=== PATIENT | female | born 1995 | race Caucasian/White ===

== ENCOUNTER 2022-03-09 09:27 | Emergency (ER) | payer MEDICAID, SELFPAY | END 2022-03-09 11:05 | disposition home or self-care (01) | LOC: ERS 09:27 | DX: S61.052A Open bite of left thumb without damage to nail, initial encounter (principal); W55.01XA Bitten by cat, initial encounter ==

== ENCOUNTER 2025-02-23 10:05 | Outpatient (CLI) | payer OTHER | END 2025-02-23 10:06 | disposition home or self-care (01) | LOC: SCSRAD 10:05 | PROVIDERS: ATTEND Physician Assistant | DX: M54.9 Dorsalgia, unspecified (principal) | CPT/HCPCS: 72052; 72072; 72100 ==